=== PATIENT | male | born 1960 | race Caucasian/White ===

== ENCOUNTER 2017-09-03 12:45 | Emergency (ER) | payer BC, OTHER ==
--- NOTE | 2017-09-03 13:29 | UC ---
Respiratory Complaint HPI - HPI Summary HPI Summary: worsening cough and chest cold ran out of albuterol had had improvement after restarting albuterol, Chest still feels tight wheezy - History of Current Complaint Chief Complaint: UCRespiratory Stated Complaint: CONGESTION,DIFFICULTY BREATHING Time Seen by Provider: 09/03/17 13:17 Hx Obtained From: Patient Onset/Duration: Gradual Onset, Lasting Days, Still Present Timing: Constant Severity Initially: Moderate Severity Currently: Moderate Pain Intensity: 6 Pain Scale Used: 0-10 Numeric Character: Cough: Productive Alleviating Factors: Bronchodilator Associated Signs And Symptoms: Positive: Pleuritic Chest Pain, Wheezing, URI, Nasal Congestion - Allergies/Home Medications Allergies/Adverse Reactions: Allergies Allergy/AdvReac Type Severity Reaction Status Date / Time Cephalexin [From Keflex] Allergy Mild Rash Verified 09/03/17 13:06 Penicillins Allergy Mild Rash Verified 09/03/17 13:06 Home Medications: Home Medications Albuterol HFA INHALER* [Ventolin HFA Inhaler*] 2 puff INH Q4H PRN 09/03/17 [ History Confirmed 09/03/17] Lisinopril 10 mg PO DAILY 09/03/17 [History Confirmed 09/03/17] predniSONE TAB* [Deltasone TAB*] 5 mg PO SEE INSTRUCTIONS 09/03/17 [History Confirmed 09/03/17] PMH/Surg Hx/FS Hx/Imm Hx Previously Healthy: No Cardiovascular History: Hypertension Respiratory History: Asthma GI/ History: Gastroesophageal Reflux - Surgical History Surgical History: Yes Surgery Procedure, Year, and Place: L4 L5 Discectomy, 1992, [place] - Family History Known Family History: Positive: None - Social History Occupation: Employed Full-time Lives: With Family Alcohol Use: "one to two ... every other day" Substance Use Type: None Smoking Status (MU): Never Smoked Tobacco - Immunization History Most Recent Tetanus Shot: unsure 4-10 years ago Review of Systems Constitutional: Negative Skin: Negative Eyes: Negative ENT: Sore Throat, Nasal Discharge, Sinus Congestion Respiratory: Cough Cardiovascular: Negative Gastrointestinal: Negative Genitourinary: Negative Motor: Negative Neurovascular: Negative Musculoskeletal: Negative Neurological: Negative Psychological: Negative Is Patient Immunocompromised?: No All Other Systems Reviewed And Are Negative: Yes Physical Exam Triage Information Reviewed: Yes Appearance: Well-Appearing, No Pain Distress, Well-Nourished Vital Signs: Initial Vital Signs Temp 97.7 F 09/03/17 13:03 Pulse 65 09/03/17 13:03 Resp 18 09/03/17 13:03 BP 142/88 09/03/17 13:03 Pulse Ox 98 09/03/17 13:03 Vital Signs Reviewed: Yes Eye Exam: Normal Eyes: Positive: Conjunctiva Clear ENT Exam: Normal ENT: Positive: Normal ENT inspection, Hearing grossly normal, Pharynx normal, Uvula midline. Negative: Nasal congestion, Nasal drainage, TMs normal, Tonsillar swelling, Tonsillar exudate, Trismus, Muffled voice, Hoarse voice Dental Exam: Normal Neck exam: Normal Neck: Positive: Supple, Nontender, No Lymphadenopathy Respiratory Exam: Normal Respiratory: Positive: Chest non-tender, Lungs clear, Normal breath sounds, No respiratory distress, No accessory muscle use Cardiovascular Exam: Normal Cardiovascular: Positive: RRR, No Murmur, Pulses Normal, Brisk Capillary Refill Musculoskeletal Exam: Normal Musculoskeletal: Positive: Strength Intact, ROM Intact, No Edema Neurological Exam: Normal Neurological: Positive: Alert, Muscle Tone Normal Psychological Exam: Normal Skin Exam: Normal UC Diagnostic Evaluation - Laboratory O2 Sat by Pulse Oximetry: 98 - EKG Cardiac Rate: NL Cardiac Rhythm: Sinus: Normal Ectopy: None ST Segment: Normal Respiratory Course/Dx - Course Course Of Treatment: Zithromax, prednisone, continue albuterol follow with pcp - Differential Dx/Diagnosis Provider Diagnoses: Elvated BP under poor control, Bronchitis Discharge - Discharge Plan Condition: Stable Disposition: HOME Prescriptions: Azithromycin TAB* [Zithromax TAB (Z-WOODROW) 250 mg #6 tabs] 2 tab PO .TODAY, THEN 1 DAILY #1 woodrow predniSONE TAB* [Deltasone TAB*] 20 mg PO DAILY #18 tab Patient Education Materials: Acute Bronchitis (ED) Referrals: LIAM Calderon [[facility], OTHER] - 2 Weeks
[2017-09-03 13:42] VITALS: BP 142/88
== END 2017-09-03 13:34 | disposition home or self-care (01) ==
LOC: UCCORT 12:45
DX: J40 Bronchitis, not specified as acute or chronic (principal); I10 Essential (primary) hypertension; J45.909 Unspecified asthma, uncomplicated; K21.9 Gastro-esophageal reflux disease without esophagitis; Z88.1 Allergy status to other antibiotic agents; Z88.0 Allergy status to penicillin
CPT/HCPCS: 93005; 99202; G0463

== ENCOUNTER 2019-02-14 14:01 | Emergency (ER) | payer OTHER ==
[2019-02-14 14:56] VITALS: BP 132/90
--- NOTE | 2019-02-14 15:14 | UC ---
Respiratory Complaint HPI - HPI Summary HPI Summary: Pt presents with c/o nasal congestion right side sinus pressure and pain. Pt has had nasal congestion and PND X 2 months. Pt denies fever but c/o fatigue and PND and cough. Pt states that he is coughing and now has chest congestion and is coughing more over the last week. - History of Current Complaint Chief Complaint: UCRespiratory Stated Complaint: SINUS,CHEST CONGESTION Time Seen by Provider: 02/14/19 15:04 Hx Obtained From: Patient Onset/Duration: Gradual Onset, Lasting Weeks - 10, Still Present, Worse Since - onset Timing: Constant Severity Initially: Mild Severity Currently: Moderate Pain Intensity: 4 Character: Cough: Productive Aggravating Factors: Exertion, Deep Breaths, Recumbent Position Alleviating Factors: Nothing Associated Signs And Symptoms: Positive: Chills, URI, Nasal Congestion, Sinus Discomfort - Risk Factors Pulmonary Embolism Risk Factors: Negative Cardiac Risk Factors: Hypertension Pseudomonas Risk Factors: Chronic Lung Disease Tuberculosis Risk Factors: Negative - Allergies/Home Medications Allergies/Adverse Reactions: Allergies Allergy/AdvReac Type Severity Reaction Status Date / Time cephalexin Allergy Rash Verified 02/14/19 14:41 seasonal Allergy Wheezing Uncoded 02/14/19 14:41 Home Medications: Home Medications Omeprazole 20 mg PO DAILY 02/14/19 [History Confirmed 02/14/19] Steroid Nasal [place] 1 spr INH BID 02/14/19 [History Confirmed 02/14/19] PMH/Surg Hx/FS Hx/Imm Hx Previously Healthy: Yes Cardiovascular History: Hypertension Respiratory History: COPD - Surgical History Surgical History: Yes Surgery Procedure, Year, and Place: "back surgeries" - Family History Known Family History: Positive: Hypertension, Non-Contributory - Social History Occupation: Employed Full-time Lives: With Family Alcohol Use: Occasionally Substance Use Type: None Smoking Status (MU): Never Smoked Tobacco Have You Smoked in the Last Year: No - Immunization History Most Recent Tetanus Shot: unsure 4-10 years ago Review of Systems All Other Systems Reviewed And Are Negative: Yes Constitutional: Positive: Fatigue Skin: Positive: Negative Eyes: Positive: Negative ENT: Positive: Sore Throat, Nasal Discharge, Sinus Congestion, Sinus Pain/ Tenderness Respiratory: Positive: Cough Cardiovascular: Positive: Negative Gastrointestinal: Positive: Negative Genitourinary: Positive: Negative Motor: Positive: Negative Neurovascular: Positive: Negative Musculoskeletal: Positive: Myalgia Neurological: Positive: Negative Psychological: Positive: Negative Is Patient Immunocompromised?: No Physical Exam Triage Information Reviewed: Yes Appearance: Ill-Appearing Vital Signs: Initial Vital Signs Temp 98.6 F 02/14/19 14:51 Pulse 86 02/14/19 14:51 Resp 18 02/14/19 14:51 BP 132/90 02/14/19 14:51 Pulse Ox 97 02/14/19 14:51 Vital Signs Reviewed: Yes Eye Exam: Normal ENT: Positive: Nasal congestion, Sinus tenderness - right maxillary, Other - PND Dental Exam: Normal Neck exam: Normal Respiratory Exam: Normal Respiratory: Positive: Normal breath sounds Cardiovascular Exam: Normal Musculoskeletal Exam: Normal Neurological Exam: Normal Psychological Exam: Normal Skin Exam: Normal Respiratory Course/Dx - Differential Dx/Diagnosis Differential Diagnosis/HQI/PQRI: Bronchitis, Influenza, Sinusitis Provider Diagnosis: Sinusitis, Chest congestion, Cough Discharge - Sign-Out/Discharge Documenting (check all that apply): Patient Departure All imaging exams completed and their final reports reviewed: No Studies - Discharge Plan Condition: Stable Disposition: HOME Prescriptions: Cetirizine* [ZyrTEC 10 MG TAB*] 10 mg PO DAILY #20 tab DOXYcycline CAP(*) [DOXYcycline 100MG CAP(*)] 100 mg PO Q12H #20 cap predniSONE TAB* [Deltasone 10 MG TAB*] 40 mg PO DAILY #20 tab Patient Education Materials: Sinusitis (ED) Referrals: Bryan López MD [Primary Care Provider] - As Soon As Possible Additional Instructions: Please follow up with your PCP as soon as possible. To help manage your symptoms, it is recommended that you use the brand or the generic equivalent to Coricidin cough and congestion relief. - Billing Disposition and Condition Condition: STABLE Disposition: Home - Attestation Statements Provider Attestation: This patient was not seen by me. I was available for consult.
== END 2019-02-14 15:39 | disposition home or self-care (01) ==
LOC: UCCORT 14:01
DX: J32.9 Chronic sinusitis, unspecified (principal); R09.89 Other specified symptoms and signs involving the circulatory and respiratory systems; R05 Cough; I10 Essential (primary) hypertension; J44.9 Chronic obstructive pulmonary disease, unspecified; Z88.1 Allergy status to other antibiotic agents
CPT/HCPCS: 99212; G0463

== ENCOUNTER 2019-02-18 17:33 | Emergency (ER) | payer OTHER ==
[2019-02-18 18:06] VITALS: BP 128/85
[2019-02-18] MEDS ORDERED: Tetan/Diph/Pertus SYR(Tdap)* 0.5 ML SYR(BOOSTRIX) use SYR IM ONE (18:31)
--- NOTE | 2019-02-18 18:48 | UC ---
Hand/Wrist HPI - HPI Summary HPI Summary: 58-year-old male presents for injury to his right hand. States just prior to arrival he was using a power drill which slipped out of his hand and the drill bit struck the back of his hand causing a laceration. Bleeding was controlled prior to arrival with direct pressure. Tetanus status is unknown. - History Of Current Complaint Chief Complaint: UCLaceration Stated Complaint: RT HAND LAC Time Seen by Provider: 02/18/19 18:20 Hx Obtained From: Patient Pain Intensity: 4 - Allergies/Home Medications Allergies/Adverse Reactions: Allergies Allergy/AdvReac Type Severity Reaction Status Date / Time cephalexin Allergy Rash Verified 02/18/19 18:06 PMH/Surg Hx/FS Hx/Imm Hx Cardiovascular History: Hypertension Respiratory History: Asthma GI/ History: Gastroesophageal Reflux - Surgical History Surgical History: Yes Surgery Procedure, Year, and Place: "back surgeries" - Family History Known Family History: Positive: Hypertension - Social History Occupation: Employed Full-time Lives: With Family Alcohol Use: Occasionally Substance Use Type: None Smoking Status (MU): Never Smoked Tobacco Have You Smoked in the Last Year: No - Immunization History Most Recent Tetanus Shot: 2013 Review of Systems All Other Systems Reviewed And Are Negative: Yes Constitutional: Positive: Negative Skin: Positive: Other - See HPI Cardiovascular: Positive: Negative Gastrointestinal: Positive: Negative Genitourinary: Positive: Negative Musculoskeletal: Positive: Negative Neurological: Positive: Negative Is Patient Immunocompromised?: No Physical Exam Triage Information Reviewed: Yes Appearance: Well-Appearing, No Pain Distress, Well-Nourished Vital Signs: Initial Vital Signs Temp 98.5 F 02/18/19 17:59 Pulse 78 02/18/19 17:59 Resp 16 02/18/19 17:59 BP 128/85 02/18/19 17:59 Pulse Ox 100 02/18/19 17:59 Vital Signs Reviewed: Yes Respiratory: Positive: Lungs clear, Normal breath sounds, No respiratory distress Cardiovascular: Positive: RRR, No Murmur, Pulses Normal, Brisk Capillary Refill Abdomen Description: Positive: Nontender, No Organomegaly, Soft. Negative: Distended, Guarding Bowel Sounds: Positive: Present Musculoskeletal: Positive: Strength Intact, ROM Intact Neurological: Positive: Alert Skin: Positive: Significant Lesion(s) - See diagram Images Hands: 1 - 1 cm x 1 cm circular superficial skin avulsion 2 - U-shaped 0.4 cm skin flap 3 - Superficial linear abrasion 2 cm in length 4 - Superficial punture wound Hand/Wrist Course/Dx - Course Course Of Treatment: 58-year-old male presents for injury to his right hand. States just prior to arrival he was using a power drill which slipped out of his hand and the drill bit struck the back of his hand causing a laceration. Bleeding was controlled prior to arrival with direct pressure. Tetanus status is unknown. Afebrile. Vital signs stable. Exam revealed multiple superficial wounds to the posterior right hand including a 1 cm x 1 cm circular skin avulsion, a 0.4 U-shaped skin flap, 2 cm superficial linear abrasion, and a single superficial puncture wound , and otherwise unremarkable exam. The wounds were cleaned. Xeroform gauze was applied to the skin avulsion, the skin flap was closed with skin adhesive, and a gauze dressing was applied and secured with Kerlix. His tetanus was updated. Wound care, anticipatory guidance, and warning symptoms reviewed with the patient. Verbalizes understanding and agrees with plan of care. - Differential Dx/Diagnosis Differential Diagnosis/HQI/PQRI: Abrasion, Puncture Wound, Other - Avulsion Provider Diagnosis: Injury of right hand, Avulsion of skin Discharge - Sign-Out/Discharge Documenting (check all that apply): Patient Departure All imaging exams completed and their final reports reviewed: No Studies - Discharge Plan Condition: Stable Disposition: HOME Patient Education Materials: Skin Avulsion (ED) Referrals: Bryan López MD [Primary Care Provider] - If Needed Additional Instructions: You had a couple of superficial skin injuries to the back of your right hand including an avulsion which could not be repaired and small skin flap that was repaired with skin adhesive. The adhesive will slowly wear off over the next several days. Keep the adhesive dry for the next 24 hours. After 24 hours you may shower and wash your hands as ususal. Do not apply any lotions or ointments to the adhesive as this may dissolve the adhesive and cause the wound to reopen. Be sure to clean the wounds at least twice a day with a mild soap and water. Keep the avulsion covered with a dressing. Apply a small strip of the Xeroform gauze that was provided to you to keep the wound moist and prevent the dressing from sticking to the wound then cover with a gauze dressing. Change this twice a day or anytime if becomes wet or soiled. Use acetaminophen (Tylenol) or ibuprofen (Advil, Motrin) according to directions as needed for pain. Your tetanus was updated today. Be sure to notify your primary care provider so they can update their records. Watch for signs of infection including fever greater than 100.5 F, have severe pain that is not managed with pain medication, redness that spreads, swelling of the hand, or pus draining from the wound. Seek immediate medical attention should any of these occur. - Billing Disposition and Condition Condition: STABLE Disposition: Home
== END 2019-02-18 19:05 | disposition home or self-care (01) ==
LOC: UCCORT 17:33
DX: S61.411A Laceration without foreign body of right hand, initial encounter (principal); S60.511A Abrasion of right hand, initial encounter; W29.8XXA Contact with other powered hand tools and household machinery, initial encounter; Y92.9 Unspecified place or not applicable; Z23 Encounter for immunization; Z88.1 Allergy status to other antibiotic agents
CPT/HCPCS: 12001; 90471; 90715; 99211; 99212; G0463

== ENCOUNTER 2019-10-23 15:44 | Emergency (ER) | payer BC, OTHER ==
--- NOTE | 2019-10-23 16:14 | UC ---
Respiratory Complaint HPI - HPI Summary HPI Summary: 59 yo male presents with URI symptoms. He tells me that over the last week has had sinus congestion and post nasal drip. Over the last 3-4 days has had a dry cough that is worse at night. He states that he has a hx of asthma and has been using his inhalers more often. Denies fever, chills, sore throat, SOB, chest pain. He does not smoke. - History of Current Complaint Stated Complaint: COUGH, CONGESTION Time Seen by Provider: 10/23/19 16:14 Hx Obtained From: Patient Onset/Duration: Gradual Onset Timing: Constant Severity Initially: Moderate Severity Currently: Moderate Pain Intensity: 6 Pain Scale Used: 0-10 Numeric - Allergies/Home Medications Allergies/Adverse Reactions: Allergies Allergy/AdvReac Type Severity Reaction Status Date / Time cephalexin Allergy Rash Verified 02/18/19 18:06 PMH/Surg Hx/FS Hx/Imm Hx Cardiovascular History: Hypertension GI/ History: Gastroesophageal Reflux - Surgical History Surgical History: Yes Surgery Procedure, Year, and Place: "back surgeries" - Family History Known Family History: Positive: Hypertension - Social History Occupation: Employed Full-time Lives: With Family Alcohol Use: Occasionally Substance Use Type: None Smoking Status (MU): Never Smoked Tobacco Have You Smoked in the Last Year: No - Immunization History Most Recent Tetanus Shot: 2013 Review of Systems All Other Systems Reviewed And Are Negative: No Constitutional: Positive: Negative Skin: Positive: Negative Eyes: Positive: Negative ENT: Positive: Sinus Congestion Respiratory: Positive: Cough Cardiovascular: Positive: Negative Gastrointestinal: Positive: Negative Neurological: Positive: Negative Psychological: Positive: Negative Physical Exam - Summary Physical Exam Summary: GENERAL: NAD. WDWN. No pain distress. SKIN: No rashes, sores, lesions, or open wounds. HEENT: Head: AT/NC Eyes: EOM intact. Conjunctiva clear without inflammation or discharge. Ears: Hearing grossly normal. TMs intact, no bulging, erythema, or edema. Nose: Nasal mucosa mildly swollen and erythematous without discharge. TTP maxillary and frontal sinus. Positive post nasal drip Throat: Posterior oropharynx without exudates, erythema, or tonsillar enlargement. Uvula midline. NECK: Supple. Nontender. No lymphadenopathy. CHEST: CTAB. No r/r/w. No accessory muscle use. Breathing comfortably and in no distress. CV: RRR. Pulses intact. NEURO: Alert. PSYCH: Age appropriate behavior. Triage Information Reviewed: Yes Vital Signs: Vital Signs: Temp Pulse Resp BP Pulse Ox 98.1 F 87 16 157/94 96 10/23/19 16:19 10/23/19 16:19 10/23/19 16:19 10/23/19 16:19 10/23/19 16:19 Vital Signs Reviewed: Yes Respiratory Course/Dx - Course Course Of Treatment: Sinusitis with possible asthma exacerbation - Differential Dx/Diagnosis Provider Diagnosis: Sinusitis Discharge ED - Sign-Out/Discharge Documenting (check all that apply): Patient Departure All imaging exams completed and their final reports reviewed: No Studies - Discharge Plan Condition: Stable Disposition: HOME Prescriptions: Azithromycin TAB* [Zithromax TAB (Z-WOODROW) 250 mg #6 tabs] 2 tab PO .TODAY, THEN 1 DAILY #1 woodrow Benzonatate CAP* [Tessalon 100 MG CAP*] 100 mg PO TID PRN #21 cap PRN Reason: Cough predniSONE 20 mg TAB [Deltasone 20 MG TAB*] 40 mg PO DAILY #10 tab Patient Education Materials: Asthma (ED), Sinusitis (ED) Referrals: Bryan López MD [Primary Care Provider] - Additional Instructions: If you develop a fever, shortness of breath, chest pain, new or worsening symptoms - please call your PCP or go to the ED immediately. Your blood pressure was high at todays visit. Please see your primary provider within 4 weeks for recheck and re-evaluation. - Billing Disposition and Condition Condition: STABLE Disposition: Home
[2019-10-23 16:23] VITALS: BP 157/94
== END 2019-10-23 16:29 | disposition home or self-care (01) ==
LOC: UCCORT 15:44
DX: J32.9 Chronic sinusitis, unspecified (principal); J45.909 Unspecified asthma, uncomplicated; I10 Essential (primary) hypertension; Z88.1 Allergy status to other antibiotic agents
CPT/HCPCS: 99212; G0463